=== PATIENT | male | born 1940 | race Caucasian/White ===

== ENCOUNTER → 2018-01-16 | Outpatient (REF) | payer MEDICARE ==
[2018-01-16 13:36] LABS: IRON (FE) 29 UG/DL (65-175); PERCENT SATURATION 5.9 % (19.7-50.0); TOTAL IRON BINDING CAPACITY 494 UG/DL (250-450); TOTAL PROTEIN 7.3 GM/DL (6.4-8.2)
[2018-01-19 12:00] LABS: FOLATE 9.6 NG/ML
[2018-01-20 12:44] LABS: ALBUMIN % 55.6 % (55.8-66.1); ALPHA-1-GLOBULIN % 4.4 % (2.9-4.9)
[2018-01-20 12:45] LABS: ALBUMIN 4.06 GM/DL (3.29-5.55); ALPHA-1-GLOBULINS 0.32 GM/DL (0.17-0.41); ALPHA-2-GLOBULINS 0.87 GM/DL (0.42-0.99); ALPHA-2-GLOBULINS % 11.9 % (7.1-11.8); BETA-1-GLOBULINS 0.55 GM/DL (0.28-0.60); BETA-1-GLOBULINS % 7.6 % (4.7-7.2); BETA-2-GLOBULINS 0.36 GM/DL (0.19-0.55); BETA-2-GLOBULINS % 4.9 % (3.2-6.5); GAMMA GLOBULIN % 15.6 % (11.1-18.8); GAMMA GLOBULINS 1.14 GM/DL (0.65-1.58)
== END ==
LOC: M LAB REF 11:52
DX: D50.9 Iron deficiency anemia, unspecified (principal); D64.9 Anemia, unspecified
CPT/HCPCS: 82746

== ENCOUNTER → 2018-02-05 | Outpatient (REF) | payer MEDICARE ==
[2018-02-05 17:58] LABS: RETIC HEMOGLOBIN EQUIVALENT 27.3 pg (24-36); RETICULOCYTE # 108.9 10^9/L (17-77); RETICULOCYTE % 2.5 % (0.5-1.5)
[2018-02-07 08:06] LABS: ERYTHROPOIETIN 31.9 mIU/mL (2.6-18.5)
== END ==
LOC: M LAB REF 16:59
DX: D50.9 Iron deficiency anemia, unspecified (principal)
CPT/HCPCS: 82668

== ENCOUNTER → 2018-02-19 | Outpatient (REF) | payer MEDICARE ==
[2018-02-19 13:10] LABS: RETIC HEMOGLOBIN EQUIVALENT 30.9 pg (24-36); RETICULOCYTE # 113.3 10^9/L (17-77); RETICULOCYTE % 2.6 % (0.5-1.5)
== END ==
LOC: M LAB REF 12:10
DX: D50.9 Iron deficiency anemia, unspecified (principal)
CPT/HCPCS: 85046

== ENCOUNTER 2018-03-04 10:34 | Day surgery (SDC) | payer MEDICARE ==
[2018-03-04] MEDS: NS 1,000 ML IV (06:45)
[~2018-03-04 10:34] MED LIST: LIDOCAINE 2% INJ 100 MG/5 ML SDV (FOR ANES.) As Ordered; PROPOFOL 200 MG/20 ML VIAL As Ordered
== END 2018-03-04 12:16 | disposition home or self-care (01) ==
LOC: M OPP 12:16
DX: Z12.11 Encounter for screening for malignant neoplasm of colon (principal); D50.9 Iron deficiency anemia, unspecified; K44.9 Diaphragmatic hernia without obstruction or gangrene; Z86.010 Personal history of colon polyps; I10 Essential (primary) hypertension; E11.9 Type 2 diabetes mellitus without complications; R12 Heartburn; M12.9 Arthropathy, unspecified; J84.10 Pulmonary fibrosis, unspecified; Z79.899 Other long term (current) drug therapy
CPT/HCPCS: G0105

== ENCOUNTER → 2018-03-05 | Outpatient (REF) | payer MEDICARE ==
[2018-03-05 13:12] LABS: RETIC HEMOGLOBIN EQUIVALENT 33.1 pg (24-36); RETICULOCYTE # 87.8 10^9/L (17-77)
== END ==
LOC: M LAB REF 12:14
DX: D50.9 Iron deficiency anemia, unspecified (principal)
CPT/HCPCS: 85046

== ENCOUNTER → 2018-05-21 | Outpatient (REF) | payer MEDICARE ==
[~2018-05-21] MED LIST changes: +BUPR1TAB56 PO; +BUPR300T34 PO; +BYST10TA2 PO; +FERR325T3 PO; -LIDOCAINE 2% INJ 100 MG/5 ML SDV (FOR ANES.) As Ordered; +LOSA100T50 PO; +OMEP20CA3 PO; +PROAAER10 INH; -PROPOFOL 200 MG/20 ML VIAL As Ordered; +SPIR1CAP INH; +SYMB16INH INH; +SYMBICORT; +TRUL0.5I SC; +VITA-113 SL; +VITA10002 PO
[2018-05-21 14:04] LABS: PERCENT SATURATION 24.2 % (19.7-50.0)
== END ==
LOC: M LAB REF 13:26
PROVIDERS: ATTEND Internal Medicine
DX: D50.9 Iron deficiency anemia, unspecified (principal)

== ENCOUNTER → 2018-11-25 | Outpatient (REF) | payer MEDICARE ==
[~2018-11-25] MED LIST changes: +CYAN100049 PO; -OMEP20CA3 PO; +OMEP20CA4 PO; -VITA10002 PO
[2018-11-25 18:15] LABS: PERCENT SATURATION 15.5 % (19.7-50.0)
== END ==
LOC: M LAB REF 17:25
PROVIDERS: ATTEND Internal Medicine
DX: D50.9 Iron deficiency anemia, unspecified (principal)

== ENCOUNTER → 2019-11-24 | Outpatient (REF) | payer MEDICARE ==
[~2019-11-24] MED LIST changes: -BUPR300T34 PO; +BUPR300T92 PO; +OMEP1CAP73 PO; -OMEP20CA4 PO
[2019-11-24 18:46] LABS: PERCENT SATURATION 5.8 % (19.7-50.0)
== END ==
LOC: M LAB REF 17:08
PROVIDERS: ATTEND Internal Medicine
DX: D50.9 Iron deficiency anemia, unspecified (principal)

== ENCOUNTER → 2021-03-14 | Outpatient (CLI) | payer MEDICARE | LOC: M RAD 09:45 | PROVIDERS: ATTEND Internal Medicine | DX: I71.4 Abdominal aortic aneurysm, without rupture (principal) ==

== ENCOUNTER → 2021-04-18 | Outpatient (REF) | payer MEDICARE ==
[~2021-04-18] MED LIST changes: +LOSA100T45 PO; -LOSA100T50 PO
== END ==
LOC: M LAB REF 16:17
PROVIDERS: ATTEND Internal Medicine
DX: N18.32 Chronic kidney disease, stage 3b (principal)

== ENCOUNTER → 2021-09-14 | Outpatient (REF) | payer MEDICARE ==
[2021-09-14 17:19] LABS: PERCENT SATURATION 11.6 % (19.7-50.0)
== END ==
LOC: M LAB REF 16:14
PROVIDERS: ATTEND Internal Medicine
DX: D64.9 Anemia, unspecified (principal)

== ENCOUNTER → 2021-10-16 | Outpatient (CLI) | payer MEDICARE | LOC: M RAD 09:35 | PROVIDERS: ATTEND Internal Medicine | DX: Z12.2 Encounter for screening for malignant neoplasm of respiratory organs (principal); F17.211 Nicotine dependence, cigarettes, in remission ==

== ENCOUNTER → 2021-11-08 | Outpatient (CLI) | payer MEDICARE | LOC: M RAD 16:15 | PROVIDERS: ATTEND Internal Medicine | DX: N28.1 Cyst of kidney, acquired (principal); N20.0 Calculus of kidney; I71.4 Abdominal aortic aneurysm, without rupture ==

== ENCOUNTER → 2022-05-13 | Outpatient (CLI) | payer MEDICARE | LOC: M RAD 07:00 | PROVIDERS: ATTEND Internal Medicine | DX: I71.43 Infrarenal abdominal aortic aneurysm, without rupture (principal) ==

== ENCOUNTER → 2022-09-10 | Outpatient (CLI) | payer MEDICARE ==
[~2022-09-10] MED LIST changes: -LOSA100T45 PO; +LOSA100T46 PO
== END ==
LOC: M RAD 13:19
PROVIDERS: ATTEND Surgery Vascular Surgery
DX: I71.40 Abdominal aortic aneurysm, without rupture, unspecified (principal)

== ENCOUNTER → 2022-10-31 | Outpatient (REF) | payer MEDICARE ==
[~2022-10-31] MED LIST changes: +FLOM0.4C39 PO; +GLIP10TA PO; +INDA1.253 PO; +JARD1TAB PO; +METF750T36 PO
[2022-10-31 12:11] LABS: PERCENT SATURATION 6.1 % (19.7-50.0)
[2022-10-31 12:13] LABS: FOLATE 13.5 NG/ML (>5.4)
== END ==
LOC: M LAB REF 11:31
PROVIDERS: ATTEND Internal Medicine
DX: D50.9 Iron deficiency anemia, unspecified (principal)

== ENCOUNTER → 2022-12-20 | Outpatient (CLI) | payer MEDICARE ==
[~2022-12-20] MED LIST changes: +ATOR1TAB21 PO; +BAYE81TA10 PO; +DULA3PEN SC; +GLIP5TAB8 PO; +OMEP40CA5 PO; +PROA1AER2 INH
== END ==
LOC: M RAD 08:51
PROVIDERS: ATTEND Physician Assistant
DX: I71.43 Infrarenal abdominal aortic aneurysm, without rupture (principal)

== ENCOUNTER 2022-12-23 08:42 | Day surgery (SDC) | payer MEDICARE ==
[~2022-12-23] VITALS: Ht 172.7 cm; Wt 97.3 kg
[~2022-12-23 08:42] MED LIST changes: +ceFAZolin SOD 2 GM in IV 1 EA IV ONE
[2022-12-23] MEDS ORDERED: LR 1,000 ML IV SCH ×2 (08:55→12:15)
[2022-12-23] MEDS ORDERED: ePHEDrine SULFATE 25 MG/5 ML(5MG/ML) SYRINGE As Ordered ONE (11:00)
[2022-12-23] MEDS ORDERED: propofoL 200 MG/20 ML VIAL As Ordered ONE (11:00)
[2022-12-23] MEDS ORDERED: ONDANSETRON 4MG 2ML VIAL As Ordered ONE (11:00)
[2022-12-23] MEDS ORDERED: ROCURONIUM BROMIDE 50MG/5ML VIAL As Ordered ONE (11:00)
[2022-12-23] MEDS ORDERED: fentaNYL 100 MCG/2 ML INJECTION As Ordered ONE ×2 (11:00→11:04)
[2022-12-23] MEDS ORDERED: SUGAMMADEX SODIUM 500 MG/5 ML VIAL (BRIDION) As Ordered ONE (11:00)
[2022-12-23] MEDS ORDERED: LIDOCAINE 2% 100MG/5ML SDV (FOR ANES.) As Ordered ONE (11:00)
[2022-12-23] MEDS ORDERED: ACETAMINOPHEN 1000MG 100ML IV BAG As Ordered ONE (11:01)
[2022-12-23] MEDS ORDERED: KETOROLAC 60MG 2ML VIAL As Ordered ONE (11:27)
[2022-12-23] MEDS ORDERED: HYDROMORPHONE HCL 0.5 MG/ 0.5 ML SYRINGE IV PRN (12:15)
[2022-12-23] MEDS ORDERED: fentaNYL 100 MCG/2 ML INJECTION IV PRN (12:15)
[2022-12-23] MEDS ORDERED: ONDANSETRON 4MG 2ML VIAL IV PRN (12:15)
[2022-12-23] MEDS: oxyCODONE 5MG TAB PO PRN ×2 (12:52→13:35)
[2022-12-23] MEDS ORDERED: NORCO, ANEXSIA 5/325MG TABLET (HYDROcodone/ACETAMINOPHEN) PO PRN (12:55)
[2022-12-23 14:35] VITALS: BP 170/90; TEMP 97.2; O2SAT 97
== END 2022-12-23 14:37 | disposition home or self-care (01) ==
LOC: M SDC 08:42
PROVIDERS: ATTEND Surgery
DX: D37.3 Neoplasm of uncertain behavior of appendix (principal); E11.9 Type 2 diabetes mellitus without complications; I10 Essential (primary) hypertension; J44.9 Chronic obstructive pulmonary disease, unspecified; Z79.899 Other long term (current) drug therapy; Z79.84 Long term (current) use of oral hypoglycemic drugs; Z79.620 Long term (current) use of immunosuppressive biologic
CPT/HCPCS: 44970; 88304; J0131; J0665; J0690; J1100; J1885; J2405; J3010

== ENCOUNTER → 2023-01-27 | Outpatient (CLI) | payer MEDICARE ==
[~2023-01-27] MED LIST changes: +GLIP5TAB17 PO; -GLIP5TAB8 PO; -ceFAZolin SOD 2 GM in IV 1 EA IV ONE
== END ==
LOC: M PLAIMG 12:55
PROVIDERS: ATTEND Internal Medicine
DX: R91.1 Solitary pulmonary nodule (principal)

== ENCOUNTER → 2023-03-27 | Outpatient (REF) | payer MEDICARE ==
[2023-03-27 18:04] LABS: APPEARANCE, URINE HAZY (CLEAR); BACTERIA, URINE AUTO NEGATIVE (NEGATIVE); BILIRUBIN, URINE AUTO NEGATIVE (NEGATIVE); BLOOD, URINE BLOOD 1+ (NEGATIVE); COLOR, URINE YELLOW (YELLOW); GLUCOSE, URINE (UA) AUTO 3+ mg/dL (NEGATIVE); KETONE, URINE AUTO NEGATIVE (NEGATIVE); LEUKOCYTE ESTERASE, URINE AUTO NEGATIVE (NEGATIVE); MUCUS, URINE SMALL (NEGATIVE); NITRITE, URINE AUTO NEGATIVE (NEGATIVE); PROTEIN, URINE AUTO 1+ mg/dL (NEGATIVE); RBC, URINE AUTO 2 /HPF (0-3); SPECIFIC GRAVITY URINE AUTO 1.024 (1.002-1.035); SQUAMOUS EPITHELIAL CELL UR AU 0 /HPF (0-6); UROBILINOGEN, URINE AUTO 0.2 mg/dL (0.0-2.0); WBC, URINE AUTO 1 /HPF (0-3)
== END ==
LOC: M LAB REF 16:24
PROVIDERS: ATTEND Internal Medicine
DX: Z01.818 Encounter for other preprocedural examination (principal)

== ENCOUNTER 2023-04-04 06:05 | Day surgery (SDC) | payer MEDICARE ==
[~2023-04-04] VITALS: Ht 172.7 cm; Wt 112.5 kg
[2023-04-04] MEDS ORDERED: LR 1,000 ML IV SCH ×2 (06:15→08:05)
[2023-04-04] MEDS ORDERED: INSULIN LISPRO (NovoLOG) PER UNIT SC PRN (06:15)
[2023-04-04] MEDS ORDERED: GLUCOSE 4GM CHEW TABLET PO PRN (06:15)
[2023-04-04] MEDS ORDERED: GLUCAGON INJ 1MG VIAL SC PRN (06:15)
[2023-04-04] MEDS ORDERED: DEXTROSE 50% 50ML SYRINGE IV PRN (06:15)
[2023-04-04] MEDS ORDERED: ceFAZolin SOD 2 GM in IV 1 EA IV ONE (06:50)
[2023-04-04] MEDS ORDERED: LIDOCAINE 2% 100MG/5ML SDV (FOR ANES.) As Ordered ONE (07:05)
[2023-04-04] MEDS ORDERED: propofoL 200 MG/20 ML VIAL As Ordered ONE (07:05)
[2023-04-04] MEDS ORDERED: ONDANSETRON 4MG 2ML VIAL As Ordered ONE (07:05)
[2023-04-04] MEDS ORDERED: fentaNYL 100 MCG/2 ML INJECTION As Ordered ONE (07:06)
[2023-04-04] MEDS ORDERED: fentaNYL 100 MCG/2 ML INJECTION IV PRN (08:05)
[2023-04-04] MEDS ORDERED: HYDROMORPHONE HCL 0.5 MG/ 0.5 ML SYRINGE IV PRN (08:05)
[2023-04-04] MEDS ORDERED: oxyCODONE 5MG TAB PO PRN (08:05)
[2023-04-04] MEDS ORDERED: ONDANSETRON 4MG 2ML VIAL IV PRN (08:05)
[2023-04-04 08:45] VITALS: BP 154/67; TEMP 97.3; O2SAT 97
[2023-04-04] MEDS ORDERED: ePHEDrine SULFATE 25 MG/5 ML(5MG/ML) SYRINGE As Ordered ONE (09:15)
[2023-04-04] MEDS ORDERED: PHENYLephrine 500MCG 5ML (100MCG/ML) SYRINGE As Ordered ONE (09:15)
[2023-04-04] MEDS ORDERED: ACETAMINOPHEN TAB 650MG DOSE (2X325MG) PO PRN (10:20)
== END 2023-04-04 09:10 | disposition home or self-care (01) ==
LOC: M SDC 06:05
PROVIDERS: ATTEND Urology
DX: N21.0 Calculus in bladder (principal); E11.9 Type 2 diabetes mellitus without complications; I10 Essential (primary) hypertension; E78.00 Pure hypercholesterolemia, unspecified; K21.9 Gastro-esophageal reflux disease without esophagitis; J44.9 Chronic obstructive pulmonary disease, unspecified; Z79.899 Other long term (current) drug therapy; Z79.82 Long term (current) use of aspirin; Z79.84 Long term (current) use of oral hypoglycemic drugs; Z79.51 Long term (current) use of inhaled steroids; Z79.85 Long-term (current) use of injectable non-insulin antidiabetic drugs
CPT/HCPCS: 52310; 82365; A4215; C1769; J0690; J1815; J2371; J2405; J3010

== ENCOUNTER 2023-04-07 04:00 | Emergency (ER) | payer MEDICARE ==
[~2023-04-07] VITALS: Ht 172.7 cm; Wt 113.0 kg
[2023-04-07 07:45] VITALS: BP 145/89; TEMP 97.5; O2SAT 97
== END 2023-04-07 07:45 | disposition home or self-care (01) ==
LOC: M ED 04:00
DX: R33.9 Retention of urine, unspecified (principal); I10 Essential (primary) hypertension; E11.9 Type 2 diabetes mellitus without complications; J44.9 Chronic obstructive pulmonary disease, unspecified; E78.5 Hyperlipidemia, unspecified; Z87.891 Personal history of nicotine dependence; Z79.02 Long term (current) use of antithrombotics/antiplatelets; Z79.52 Long term (current) use of systemic steroids; Z79.4 Long term (current) use of insulin; Z79.899 Other long term (current) drug therapy

== ENCOUNTER → 2023-05-30 | Outpatient (REF) | payer MEDICARE ==
[2023-06-03 12:53] LABS: PERCENT SATURATION 7.3 % (19.7-50.0)
== END ==
LOC: M LAB REF 12:30
PROVIDERS: ATTEND Internal Medicine
DX: D50.9 Iron deficiency anemia, unspecified (principal)

== ENCOUNTER → 2023-08-27 | Outpatient (REF) | payer MEDICARE ==
[~2023-08-27] MED LIST changes: +BUPR-597 PO; -BUPR300T92 PO
[2023-08-27 15:16] LABS: URIC ACID 6.7 MG/DL (3.7-9.2)
[2023-08-27 15:19] LABS: PHOSPHORUS LEVEL 3.3 MG/DL (2.4-5.1); PTH INTACT 58.7 PG/ML (18.5-88.0)
== END ==
LOC: M LAB REF 12:33
PROVIDERS: ATTEND Internal Medicine
DX: N18.32 Chronic kidney disease, stage 3b (principal)

== ENCOUNTER → 2023-09-10 | Outpatient (CLI) | payer MEDICARE | LOC: M RAD 12:19 | PROVIDERS: ATTEND Physician Assistant | DX: N21.0 Calculus in bladder (principal) ==

== ENCOUNTER → 2023-11-10 | Outpatient (CLI) | payer MEDICARE | LOC: M WHC 07:11 | PROVIDERS: ATTEND Physician Assistant | DX: I71.40 Abdominal aortic aneurysm, without rupture, unspecified (principal) ==

== ENCOUNTER → 2024-02-05 | Outpatient (CLI) | payer MEDICARE ==
[~2024-02-05] MED LIST changes: -BYST10TA2 PO; +BYST1TAB3 PO
== END ==
LOC: M PLAIMG 12:48
PROVIDERS: ATTEND Internal Medicine
DX: R91.1 Solitary pulmonary nodule (principal)

== ENCOUNTER → 2024-03-29 | Outpatient (REF) | payer MEDICARE ==
[2024-03-29 17:06] LABS: URIC ACID 6.9 MG/DL (3.7-9.2)
[2024-03-29 17:10] LABS: PERCENT SATURATION 9.2 % (19.7-50.0); PHOSPHORUS LEVEL 3.3 MG/DL (2.4-5.1); PTH INTACT 35.3 PG/ML (18.5-88.0)
== END ==
LOC: M LAB REF 16:04
PROVIDERS: ATTEND Internal Medicine
DX: D50.9 Iron deficiency anemia, unspecified (principal); D63.1 Anemia in chronic kidney disease; N18.32 Chronic kidney disease, stage 3b

== ENCOUNTER → 2024-05-13 | Outpatient (CLI) | payer MEDICARE | LOC: M RAD 09:46 | PROVIDERS: ATTEND Physician Assistant | DX: I71.43 Infrarenal abdominal aortic aneurysm, without rupture (principal); Z48.812 Encounter for surgical aftercare following surgery on the circulatory system; Z98.890 Other specified postprocedural states; Z86.79 Personal history of other diseases of the circulatory system ==

== ENCOUNTER → 2024-07-01 | Outpatient (REF) | payer MEDICARE ==
[2024-07-02 14:06] LABS: URIC ACID 7.5 MG/DL (3.7-9.2)
[2024-07-02 14:09] LABS: PHOSPHORUS LEVEL 4.2 MG/DL (2.4-5.1)
== END ==
LOC: M LAB REF 12:51
PROVIDERS: ATTEND Internal Medicine
DX: N18.32 Chronic kidney disease, stage 3b (principal)

== ENCOUNTER → 2024-07-06 | Outpatient (CLI) | payer MEDICARE | LOC: M RAD 09:22 | PROVIDERS: ATTEND Internal Medicine | DX: N28.9 Disorder of kidney and ureter, unspecified (principal); N28.1 Cyst of kidney, acquired ==

== ENCOUNTER → 2024-07-30 | Outpatient (REF) | payer MEDICARE ==
[~2024-07-30] MED LIST changes: -BUPR-597 PO; +BUPR-766 PO; -BUPR1TAB56 PO; +BUPR200T45 PO; -FLOM0.4C39 PO; +TAMS-18 PO
[2024-07-30 13:08] LABS: PERCENT SATURATION 39.2 % (19.7-50.0)
[2024-07-30 13:09] LABS: PTH INTACT 102.7 PG/ML (18.5-88.0)
== END ==
LOC: M LAB REF 12:38
PROVIDERS: ATTEND Internal Medicine
DX: N18.32 Chronic kidney disease, stage 3b (principal); D63.1 Anemia in chronic kidney disease

== ENCOUNTER 2024-08-25 09:02 | Day surgery (SDC) | payer MEDICARE ==
[~2024-08-25] VITALS: Ht 172.7 cm; Wt 109.4 kg
[~2024-08-25 09:02] MED LIST changes: +ASPI81TA26 PO; +JARD1TAB3 PO
[2024-08-25 10:07] VITALS: TEMP 97.9
[2024-08-25] MEDS ORDERED: GLYCOPYRROLATE INJ 0.2 MG/ML 2 ML VIAL As Ordered ONE (10:22)
[2024-08-25] MEDS ORDERED: propofoL 200 MG/20 ML VIAL As Ordered ONE (10:22)
[2024-08-25] MEDS ORDERED: LIDOCAINE 2% 100MG/5ML SDV (FOR ANES.) As Ordered ONE (10:22)
[2024-08-25 10:26] VITALS: BP 103/64; O2SAT 95
== END 2024-08-25 10:40 | disposition home or self-care (01) ==
LOC: M OPP 09:02
PROVIDERS: ATTEND Surgery
DX: D50.9 Iron deficiency anemia, unspecified (principal); K29.50 Unspecified chronic gastritis without bleeding; K64.1 Second degree hemorrhoids; Z90.49 Acquired absence of other specified parts of digestive tract; J44.9 Chronic obstructive pulmonary disease, unspecified; Z79.51 Long term (current) use of inhaled steroids; Z79.899 Other long term (current) drug therapy; Z79.82 Long term (current) use of aspirin; E11.9 Type 2 diabetes mellitus without complications; I10 Essential (primary) hypertension; N40.0 Benign prostatic hyperplasia without lower urinary tract symptoms; Z90.89 Acquired absence of other organs; Z79.85 Long-term (current) use of injectable non-insulin antidiabetic drugs; Z87.19 Personal history of other diseases of the digestive system
CPT/HCPCS: 43239; 45378; 88305; J1596

== ENCOUNTER → 2024-12-17 | Outpatient (CLI) | payer MEDICARE | LOC: M RAD 11:14 | PROVIDERS: ATTEND Physician Assistant | DX: Z09 Encounter for follow-up examination after completed treatment for conditions other than malignant neoplasm (principal); Z87.448 Personal history of other diseases of urinary system ==

== ENCOUNTER → 2025-01-27 | Outpatient (REF) | payer MEDICARE ==
[2025-01-27 13:38] LABS: IRON (FE) 24.0 UG/DL (65-175); PERCENT SATURATION 5.3 % (19.7-50.0); PHOSPHORUS LEVEL 3.7 MG/DL (2.4-5.1)
[2025-01-27 13:39] LABS: PTH INTACT 91.6 PG/ML (18.5-88.0)
== END ==
LOC: M LAB REF 12:30
PROVIDERS: ATTEND Internal Medicine
DX: N18.32 Chronic kidney disease, stage 3b (principal); D63.1 Anemia in chronic kidney disease